=== PATIENT | female | born 1965 | race Caucasian/White ===

== ENCOUNTER → 2023-09-21 07:02 | Outpatient (REF) | payer OTHER, SELFPAY | LOC: HWWDC 07:02 | PROVIDERS: ATTENDING PHYSICIAN Internal Medicine; REFERRING PHYSICIAN Obstetrics & Gynecology | DX: Z12.31 Encounter for screening mammogram for malignant neoplasm of breast (principal) | CPT/HCPCS: 77063; 77067 ==

== ENCOUNTER → 2024-04-11 14:11 | Outpatient (REF) | payer OTHER, SELFPAY | LOC: DHSLP 14:11 | PROVIDERS: ATTENDING PHYSICIAN Internal Medicine; FAMILY PHYSICIAN Internal Medicine | DX: G47.30 Sleep apnea, unspecified (principal); R06.83 Snoring | CPT/HCPCS: 95800 ==

== ENCOUNTER → 2025-05-02 11:15 | Outpatient (REF) | payer OTHER, SELFPAY | LOC: HWWDC 11:15 | PROVIDERS: ATTENDING PHYSICIAN Internal Medicine; REFERRING PHYSICIAN Obstetrics & Gynecology Gynecology | DX: Z12.31 Encounter for screening mammogram for malignant neoplasm of breast (principal) | CPT/HCPCS: 77063; 77067 ==